=== PATIENT | female | born 1950 | race Asian ===

== ENCOUNTER 2017-10-12 15:06 | Emergency (ER) | payer MEDICARE ==
[~2017-10-12] VITALS: Ht 154.9 cm; Wt 58.0 kg
[~2017-10-12 15:06] MED LIST: ALBU8.5H8 IH
[2017-10-12 15:47] VITALS: BP 132/79
[2017-10-12] MEDS ORDERED: BENZ-16 PO (16:07)
[2017-10-12] MEDS ORDERED: TAM75C PO (16:07)
== END 2017-10-12 16:51 | disposition home or self-care (01) ==
LOC: ER 15:06
DX: J02.9 Acute pharyngitis, unspecified (principal); R05 Cough; R50.9 Fever, unspecified; Z85.3 Personal history of malignant neoplasm of breast; Z87.01 Personal history of pneumonia (recurrent); Z88.0 Allergy status to penicillin; Z79.899 Other long term (current) drug therapy
CPT/HCPCS: 71046; 99284

== ENCOUNTER 2018-01-05 02:15 | Outpatient (CLI) | payer MEDICARE | END 2018-01-05 23:59 | disposition home or self-care (01) | LOC: DIABETIC 02:15 | PROVIDERS: ATTEND Specialist | DX: E11.65 Type 2 diabetes mellitus with hyperglycemia (principal) | CPT/HCPCS: G0108 ==

== ENCOUNTER 2018-02-01 04:53 | Outpatient (CLI) | payer MEDICARE | END 2018-02-01 23:59 | disposition home or self-care (01) | LOC: DIABETIC 04:53 | PROVIDERS: ATTEND Specialist | DX: E11.65 Type 2 diabetes mellitus with hyperglycemia (principal) | CPT/HCPCS: G0108 ==

== ENCOUNTER 2018-06-09 02:46 | Outpatient (CLI) | payer MEDICARE | END 2018-06-09 23:59 | disposition home or self-care (01) | LOC: DIABETIC 02:46 | PROVIDERS: ATTEND Specialist | DX: E11.65 Type 2 diabetes mellitus with hyperglycemia (principal); Z88.5 Allergy status to narcotic agent; Z88.6 Allergy status to analgesic agent; Z88.0 Allergy status to penicillin; Z88.8 Allergy status to other drugs, medicaments and biological substances; Z79.899 Other long term (current) drug therapy | CPT/HCPCS: G0108 ==

== ENCOUNTER 2018-08-05 01:03 | Outpatient (CLI) | payer MEDICARE | END 2018-08-05 23:59 | disposition home or self-care (01) | LOC: DIABETIC 01:03 | PROVIDERS: ATTEND Specialist | DX: E11.65 Type 2 diabetes mellitus with hyperglycemia (principal); Z79.84 Long term (current) use of oral hypoglycemic drugs; Z88.5 Allergy status to narcotic agent; Z88.0 Allergy status to penicillin; Z88.6 Allergy status to analgesic agent; Z88.8 Allergy status to other drugs, medicaments and biological substances | CPT/HCPCS: G0108 ==

== ENCOUNTER 2019-06-29 03:18 | Outpatient (CLI) | payer MEDICARE | END 2019-06-29 23:59 | disposition home or self-care (01) | LOC: DIABETIC 03:18 | PROVIDERS: ATTEND Specialist | DX: E11.65 Type 2 diabetes mellitus with hyperglycemia (principal); Z79.84 Long term (current) use of oral hypoglycemic drugs; Z79.899 Other long term (current) drug therapy; Z88.0 Allergy status to penicillin; Z88.5 Allergy status to narcotic agent; Z88.6 Allergy status to analgesic agent; Z88.8 Allergy status to other drugs, medicaments and biological substances | CPT/HCPCS: G0108 ==

== ENCOUNTER 2019-09-30 05:00 | Outpatient (CLI) | payer MEDICARE | END 2019-09-30 23:59 | disposition home or self-care (01) | LOC: DIABETIC 05:00 | PROVIDERS: ATTEND Specialist | DX: E11.65 Type 2 diabetes mellitus with hyperglycemia (principal); Z79.84 Long term (current) use of oral hypoglycemic drugs | CPT/HCPCS: G0108 ==

== ENCOUNTER 2020-07-17 06:29 | Day surgery (SDC) | payer MEDICARE ==
[2020-07-12 12:51] LABS: BASOPHILS % (AUTO) 0.7 % (0-1); EOSINOPHILS # (AUTO) 0.1 X10'3 (0-0.9); EOSINOPHILS % (AUTO) 2.6 % (0-6); LYMPHOCYTES # (AUTO) 2.3 X10'3 (1.1-4.8); LYMPHOCYTES % (AUTO) 44.7 % (21-51); MEAN CORPUSCULAR HEMOGLOBIN 32.2 PG (27.0-31.0); MEAN CORPUSCULAR HGB CONC 34.2 g/dL (33.0-36.5); MEAN CORPUSCULAR VOLUME 94.3 FL (78-98); MEAN PLATELET VOLUME 8.7 FL (7.4-10.4); MONOCYTES # (AUTO) 0.4 X10'3 (0-0.9); MONOCYTES % (AUTO) 7.1 % (2-12); NEUTROPHILS # (AUTO) 2.4 X10'3 (1.8-7.7); NEUTROPHILS % (AUTO) 44.9 % (42-75); PRE OP HEMATOCRIT 37.6 % (35.0-45.0); PRE OP HEMOGLOBIN 12.8 g/dL (12.0-16.0); PRE OP PLATELET COUNT 302 X10'3 (140-440); RED BLOOD COUNT 3.98 X10'6 (4.20-5.60); RED CELL DISTRIBUTION WIDTH 12.8 % (11.5-14.5)
[2020-07-12 13:02] LABS: PRE OP INR 0.9 INR; PRE OP PROTIME 9.8 SECONDS (9.0-12.0)
[2020-07-12 13:24] LABS: ALBUMIN 4.7 G/DL (3.4-5.0); ALBUMIN/GLOBULIN RATIO 1.1 (1.1-1.5); ALKALINE PHOSPHATASE 63 IU/L (46-116); BLOOD UREA NITROGEN 13 MG/DL (7-18); BUN/CREATININE RATIO 19.7 (6.6-38.0); CALCIUM 9.5 MG/DL (8.5-10.1); CHLORIDE 102 MMOL/L (99-107); CREATININE 0.66 MG/DL (0.40-0.90); PRE OP ALT 50 U/L (30-65); PRE OP ANION GAP 7 (8-16); PRE OP AST 43 U/L (10-37); PRE OP BILIRUB, TOTAL 0.4 MG/DL (0.0-1.0); PRE OP GLUCOSE 101 MG/DL (70-104); PRE OP POTASSIUM 3.8 MMOL/L (3.4-5.1); PRE OP SODIUM 138 MMOL/L (135-145); TOTAL CARBON DIOXIDE 28.9 MMOL/L (24-32); TOTAL PROTEIN 8.8 G/DL (6.4-8.2); eGFR 89 ML/MIN
[2020-07-17] VITALS (12 sets, daily range): BP systolic 120–136; BP diastolic 59–96
[~2020-07-17] VITALS: Ht 152.4 cm; Wt 53.5 kg
[~2020-07-17 06:29] MED LIST changes: +ALBU18HF2 INH; +ANAS1TAB10 PO; +CEFD300C21 PO; +COLE1TAB4 PO; +DENO60DI SUBCUT; +DORZ10DR19 EACHEYE; +FOLI1TAB2 PO; +GABA300T25 PO; +GEMF600T89 PO; +METF-900 PO; +MONT10TA26 PO; +SPIR25TA5 PO; +TAFL1DRO OP; +famotidine 20mg tablet PO ONE; +oxymetazoline 15 ML nasal spray NS ONE; +ringers solution, lacted 1,000 ML IV SCH
[2020-07-17] MEDS ORDERED: cocaine 4% topical solution 4ml bottle ONE (06:46)
[2020-07-17] MEDS ORDERED: LIDOcaine 1% W/epiNEPHrine 1:100,000 20ml vial ONE (06:46)
[2020-07-17] MEDS ORDERED: mupirocin 2% ointment 22GM ONE (06:46)
[2020-07-17] MEDS ORDERED: BUPIVAcaine 0.5% W/EPI /PF 30ml vial ONE (06:46)
[2020-07-17] MEDS ORDERED: oxymetazoline 15 ML nasal spray NS ONE (06:47)
[2020-07-17] MEDS ORDERED: aprepitant 40mg capsule PO ONE (08:04)
[2020-07-17] MEDS ORDERED: sevoflurane 250ml liquid IH ONE (08:05)
[2020-07-17] MEDS ORDERED: neostigmine methylsulfate 1 MG/ML 10ml vial ONE (08:05)
[2020-07-17] MEDS ORDERED: fentaNYL/PF 50MCG/1 ML 2ML syringe ONE (08:13)
[2020-07-17] MEDS ORDERED: midazolam 2 mg/2 ml injection ONE (08:16)
[2020-07-17] MEDS ORDERED: propofol inj 20 ML IV ONE (08:24)
[2020-07-17] MEDS ORDERED: dexamethasone sod phosphate 4mg/ml inj. ONE (08:25)
[2020-07-17] MEDS ORDERED: rocuronium 10mg/ml inj IV ONE (08:25)
[2020-07-17] MEDS ORDERED: LIDOcaine 2% (20mg/ml) 5ml vial ONE (08:25)
[2020-07-17] MEDS ORDERED: ondansetron/PF 4mg/2ml inj ONE (08:25)
[2020-07-17] MEDS ORDERED: cefTAZidime 1gm inj ONE (08:28)
[2020-07-17] MEDS ORDERED: ePHEDrine 50MG/ML INJ. ONE (08:30)
[2020-07-17] MEDS ORDERED: proCHLORperazine 10 MG/2 ml inj IV PRN (08:55)
[2020-07-17] MEDS ORDERED: ringers solution, lacted 1,000 ML IV SCH (08:55)
[2020-07-17] MEDS ORDERED: ondansetron/PF 4mg/2ml inj IV PRN (08:55)
[2020-07-17] MEDS ORDERED: morphine 4 MG/ML inj SYRINge IV PRN (08:55)
[2020-07-17] MEDS ORDERED: meperidine/PF 25mg/ml syringe IV PRN ×3 (08:55)
[2020-07-17] MEDS ORDERED: morphine 2 MG/ML inj. syringe IV PRN (08:55)
[2020-07-17] MEDS ORDERED: glycopyrrolate 0.2mg/ml inj ONE (09:37)
--- NOTE | 2020-07-17 09:50 | NUR ---
Received from OR via [facility], accompanied by Anesthesiologist sterling and report given by Anesthesiolgist. pt drowsy, oxygenating well on 10 lpm o2 via mask, no resp distress noted. pt co mild headache, no nausea at this time. nasal plegette to l nostril. vss.
[2020-07-17] MEDS ORDERED: oxymetazoline 15 ML nasal spray NS SCH (10:20)
[2020-07-17] MEDS ORDERED: salt irrigation nasal spray 45 ML SPRAY NS SCH (10:20)
[2020-07-17] MEDS ORDERED: mupirocin 2% ointment 22GM TP SCH (10:20)
--- NOTE | 2020-07-17 12:45 | NUR ---
POST OP ACCU CHECK 124. PT CO HEADACHE, RESOLVED AFTER DEMEROL GIVEN. VSS. TOLERATING PO FLUIDS WELL. PT DCD IN STABLE CONDITION, TAKEN TO CAR VIA WC. DISCHARGE INSTRUCTIONS WERE EXPLAINED TO PT AND HER AT LENGTH, THEY VERBALIZED UNDERSTANDING.
== END 2020-07-17 12:45 | disposition home or self-care (01) ==
LOC: PAS 06:29
PROVIDERS: ATTEND Otolaryngology
DX: J32.8 Other chronic sinusitis (principal); J34.89 Other specified disorders of nose and nasal sinuses; J33.8 Other polyp of sinus; M19.90 Unspecified osteoarthritis, unspecified site; I10 Essential (primary) hypertension; E11.9 Type 2 diabetes mellitus without complications; Z90.710 Acquired absence of both cervix and uterus; Z98.890 Other specified postprocedural states; Z85.3 Personal history of malignant neoplasm of breast; Z87.01 Personal history of pneumonia (recurrent); Z88.0 Allergy status to penicillin; Z88.5 Allergy status to narcotic agent; Z88.8 Allergy status to other drugs, medicaments and biological substances; Z79.899 Other long term (current) drug therapy; Z79.84 Long term (current) use of oral hypoglycemic drugs; Z87.891 Personal history of nicotine dependence; Z20.828 Contact with and (suspected) exposure to other viral communicable diseases; Z79.01 Long term (current) use of anticoagulants
CPT/HCPCS: 31253; 31259; 31267; 36415; 61782; 80053; 82948; 85025; 85576; 85610; 85730; 87070; 87102; 87635; 93005; A6402; C9250; C9803; J0713; J1100; J2001; J2175; J2250; J2405; J2704; J3010; J7040; J7120; J8501; A4618; A7000; J2710; J3490